=== PATIENT | female | born 1985 | race Caucasian/White ===

== ENCOUNTER 2016-10-17 12:20 | Outpatient (CLI) | payer OTHER ==
--- NOTE | 2016-10-21 08:31 | XRAY Report ---
TWO-VIEW CHEST: 10/17/2016 CLINICAL INDICATION: Cough, shortness of breath. FINDINGS: Frontal and lateral views of the chest demonstrate a normal cardiac silhouette. The lungs demonstrate low volumes, producing crowding of the pulmonary vasculature, but are otherwise clear. No effusion or pneumothorax is present. IMPRESSION: LOW LUNG VOLUMES, BUT NO EVIDENCE OF ACUTE CARDIOPULMONARY DISEASE. JOB #: [id number] EXT JOB #:[id number]
== END 2016-10-17 12:21 | disposition home or self-care (01) ==
LOC: DI 12:20
PROVIDERS: ATTEND Family Medicine
DX: R06.02 Shortness of breath (principal); R05 Cough
CPT/HCPCS: 71020